=== PATIENT | female | born 1990 | race Caucasian/White ===

== ENCOUNTER 2021-04-23 23:38 | Inpatient (IN) | payer OTHER ==
[~2021-04-23 23:38] MED LIST: COLACE100 MG PO; FLEXERIL10 MG PO; NORCO 5-325 TA1 EACH PO; PERCOCET 5-3251 EACH PO; ZOFRAN4 MG PO
[2021-04-24 00:37] LABS: HCT 34.3 % (37.0-47.0); MCHC 32.1 g/dL (32.0-36.0); MCV 93.5 fL (78.0-100.0); MPV 9.8 fL (6.0-9.5); RBC 3.67 M/uL (4.20-5.40); RDW 13.3 % (11.5-14.0)
[2021-04-24 11:40] LABS: BILIRUBIN NEGATIVE (NEGATIVE); BLOOD NEGATIVE Ery/uL (NEGATIVE); CLARITY CLEAR (CLEAR); COLOR YELLOW (YELLOW); GLUCOSE (U) NORMAL (NORMAL); LEUKOCYTES NEGATIVE Leu/uL (NEGATIVE); NITRITE NEGATIVE (NEGATIVE); PROTEIN NEGATIVE (NEGATIVE); UROBILINOGEN 0.2 mg/dL (0.2-1.0)
[2021-04-24 11:44] LABS: ECSTASY (MDMA) POSITIVE (NEGATIVE); MARIJUANA (THC) POSITIVE (NEGATIVE)
[2021-04-24 11:45] LABS: AMPHETAMINES NEGATIVE (NEGATIVE); BARBITURATES NEGATIVE (NEGATIVE); METHADONE NEGATIVE (NEGATIVE); OPIATES NEGATIVE (NEGATIVE); OXYCODONE NEGATIVE (NEGATIVE)
[2021-04-25 05:58] LABS: HCT 33.1 % (37.0-47.0); HGB 10.9 g/dl (12.5-16.0); MCH 30.8 pg (25.0-31.0); MCHC 32.9 g/dL (32.0-36.0); MCV 93.5 fL (78.0-100.0); MPV 9.8 fL (6.0-9.5); RBC 3.54 M/uL (4.20-5.40); RDW 13.2 % (11.5-14.0); WBC 11.4 K/uL (4.0-10.5)
[2021-04-25] MEDS ORDERED: COLACE100 MG PO (11:11)
[2021-04-25] MEDS ORDERED: IBUPROFEN800 MG PO (11:11)
[2021-04-26 08:24] LABS: AMPHETAMINES NEGATIVE (NEGATIVE); BARBITURATES NEGATIVE (NEGATIVE); ECSTASY (MDMA) NEGATIVE (NEGATIVE); MARIJUANA (THC) POSITIVE (NEGATIVE); METHADONE NEGATIVE (NEGATIVE); OPIATES NEGATIVE (NEGATIVE); OXYCODONE NEGATIVE (NEGATIVE)
== END 2021-04-26 12:30 | disposition home or self-care (01) | DRG 806 ==
LOC: FOD 23:38 → FOB 23:38 → FOD 04-24 09:15 → FOB 04-24 09:16
PROVIDERS: Specialist; ADMIT Obstetrics & Gynecology
PROC: 10E0XZZ Delivery of Products of Conception, External Approach (ICD-10-PCS; principal; 2021-04-24)
DX: O76 Abnormality in fetal heart rate and rhythm complicating labor and delivery (principal); O99.324 Drug use complicating childbirth; Z37.0 Single live birth; Z3A.37 37 weeks gestation of pregnancy; Z20.822 Contact with and (suspected) exposure to COVID-19; O99.02 Anemia complicating childbirth; O36.63X0 Maternal care for excessive fetal growth, third trimester, not applicable or unspecified; F12.90 Cannabis use, unspecified, uncomplicated; O99.824 Streptococcus B carrier state complicating childbirth; Z86.16 Personal history of COVID-19; Z86.19 Personal history of other infectious and parasitic diseases
CPT/HCPCS: 36415; 80305; 81003; 86850; 86900; 86901; J2405; J2540; J7120; U0002

== ENCOUNTER 2021-04-29 10:36 | Emergency (ER) | payer OTHER ==
[~2021-04-29 10:36] MED LIST changes: +IBUPROFEN800 MG PO
[2021-04-29 11:27] LABS: BASOPHIL 0.7 % (0-2); EOSINOPHIL 3.2 % (0-5); HCT 38.8 % (37.0-47.0); HGB 12.5 g/dl (12.5-16.0); LYMPHOCYTE 24.9 % (15-48); MCH 29.8 pg (25.0-31.0); MCHC 32.2 g/dL (32.0-36.0); MCV 92.6 fL (78.0-100.0); MONOCYTE 6.6 % (0-12); MPV 9.3 fL (6.0-9.5); NEUTROPHIL 63.9 % (41-80); NRBC 0; PLT 315 K/uL (150-400); RBC 4.19 M/uL (4.20-5.40); WBC 6.8 K/uL (4.0-10.5)
[2021-04-29 11:46] LABS: ALBUMIN 2.8 g/dL (3.4-5.0); BILIRUBIN - TOTAL 0.2 mg/dL (0.2-1.0); BUN/CREAT RATIO (CALC) 24.1 RATIO; CREATININE 0.54 mg/dL (0.51-0.95); GLOBULIN (CALCULATION) 4.3 g/dL; POTASSIUM 3.8 mmol/L (3.5-5.1); TOTAL PROTEIN 7.1 g/dL (6.4-8.2)
== END 2021-04-29 15:15 | disposition home or self-care (01) ==
LOC: FER 10:36
PROVIDERS: Emergency Medicine
DX: O90.89 Other complications of the puerperium, not elsewhere classified (principal); K40.90 Unilateral inguinal hernia, without obstruction or gangrene, not specified as recurrent; Z86.16 Personal history of COVID-19; Z20.822 Contact with and (suspected) exposure to COVID-19
CPT/HCPCS: 36415; 71275; 72193; 80053; 83690; 84484; 85025; J1170; J3360; J7040; Q9967; U0002

== ENCOUNTER → 2021-06-25 | Day surgery (SDC) | payer OTHER ==
[~2021-06-25] VITALS: Ht 170.2 cm; Wt 81.8 kg
[~2021-06-25] MED LIST changes: +ACETAMINOPHEN500 M1 PO; +OXY-IR 5MG5 MG PO; +PRILOSEC20 MG PO
[2021-06-25 08:45] LABS: HCG (URINE) SCREEN NEGATIVE (NEGATIVE)
== END | disposition home or self-care (01) ==
LOC: FAS 08:22
PROVIDERS: Student in an Organized Health Care Education/Training Program
DX: K40.31 Unilateral inguinal hernia, with obstruction, without gangrene, recurrent (principal); K21.9 Gastro-esophageal reflux disease without esophagitis; F17.210 Nicotine dependence, cigarettes, uncomplicated; Z79.899 Other long term (current) drug therapy
CPT/HCPCS: 84703; C1727; C1781; J0690; J1100; J1170; J1644; J1885; J2250; J2405; J2704; J2710; J3010; J7120